=== PATIENT | male | born 1980 | race Hispanic/Latino ===

== ENCOUNTER 2016-12-28 22:27 | Inpatient (IN) ==
[2016-12-28 23:03] LABS: MANUAL DIFF NEEDED? NO
[2016-12-28 23:15] LABS: INR 1.04; PTT 30.8 Seconds (22.0-36.0)
[2016-12-28 23:17] LABS: AGAP 14; ALBUMIN 3.8 g/dL (3.5-5.0); ALKALINE PHOSPHATASE 94 U/L (32-122); BUN 12 mg/dL (8-22); CALCIUM 9.1 mg/dL (8.8-10.2); CHLORIDE 93 mmol/L (98-107); COSMO 271; GOT 26 U/L (10-34); GPT 35 U/L (10-44); POTASSIUM 3.4 mmol/L (3.5-5.1); SODIUM 135 mmol/L (136-145); TCO2 28 mmol/L (25-35); TOTAL BILIRUBIN 0.49 mg/dL (0.20-1.00); TOTAL PROTEIN 7.7 g/dL (6.3-8.3)
[2016-12-28 23:32] LABS: BASO% 0.1 % (0.0-0.8); EOS# 0.04 X1000 (0.0-0.7); EOS% 0.4 % (0.0-10.0); HEMOGLOBIN 11.5 g/dL (14.0-18.0); LYMPH# 1.82 X1000 (1.2-3.4); LYMPH% 17.8 % (20.5-51.1); MCH 29.3 PG (27-31); MCHC 33.8 g/dL (33-37); MCV 86.7 FL (81-99); MONO# 1.27 X1000 (0.11-0.59); MONO% 12.5 % (1.7-9.3); MPV 10.2 FL (7.4-10.4); NEUT% 69.2 % (42.2-75.2); PLT 328 X1000 (130-400); RBC 3.92 XMIL (4.7-6.1)
[2016-12-28] MEDS ORDERED: ROCEPHIN 1 GM/NS 1 GM/50 ML IVPB IV ONE (23:41)
[2016-12-28] MEDS ORDERED: ZITHROMAX 500 MG/NS 500 MG/250 ML IVPB IV ONE (23:42)
--- NOTE | 2016-12-28 23:56 | PROVIDER DOCUMENTATION ---
This chart was entered by Bo Yo Scribe, acting as scribe for Adryan Arnett MD. HPI-EENT General - General Stated Complaint: BLEEDING IN STOMA Time Seen by Provider: 12/28/16 22:27 Source: patient, family Allergies/Adverse Reactions: Patient Allergies Allergy/AdvReac Type Severity Reaction Status Date / Time No Known Allergies Allergy Verified 11/15/16 18:45 Home Medications: Home Medication List Medication Instructions Recorded Confirmed Last Taken Type NK [No Home Medications] 11/15/16 11/15/16 Unknown History - History of Present Illness-EENT General Nature of Presenting Problem: Pt is a 36 yohm with hx of throat cancer who presents to ER via EMS with CC of bleeding from tracheostomy tube. Pt sees Dr. Werner (ENT) in [place]. Pt reports mild pain, subjective fever, and blood coming from tracheostomy tube. EENT Location: reports: throat (tracheostomy tube) Quality of Pain: reports: other (unspecified) Severity: reports: mild Onset/Duration: reports: unsure, just prior to arrival Timing: reports: still present Associated Symptoms: reports: cough (bleeding from stoma is inducing cough), fever, voice change (unable to speak due to tracheostomy tube). denies: change in hearing, drooling, ear drainage, facial pain/swelling, malaise, nasal congestion/drainage, poor fluid intake, poor solids intake, sinus infection, sore throat, tooth pain Locality of Occurance: Home Similar Symptoms Previously?: Yes Recently seen or treated by another doctor?: Yes Review of Systems - Adult - REVIEW OF SYSTEMS - ADULT Constitutional: reports: fever. denies: chills, fatique, night sweats, weight gain, weight loss Eyes: reports: no symptoms reported Ears, Nose, Mouth & Throat: reports: no symptoms reported Cardiovascular: reports: no symptoms reported Respiratory: reports: cough (stoma bleeding induced cough). denies: dyspnea on exertion, excessive sputum production, pleurisy, shortness of breath, wheezing Gastrointestinal: reports: no symptoms reported Genitourinary: reports: no symptoms reported Musculoskeletal: reports: no symptoms reported Integumentary: reports: no symptoms reported Neurological: reports: no symptoms reported Psychiatric: reports: no symptoms reported Endocrine: reports: no symptoms reported Hematologic/Lymphatic: reports: no symptoms reported Allergic/Immunologic: reports: no symptoms reported All Other Systems: Reviewed and Negative Past History - Adult - PAST MEDICAL HISTORY-ADULT Review of Records: reports: Nursing Assessment Review, Medications Reviewed - PRIOR SURGERIES/PROCEDURES Surgical/Procedure History: reports: other (Tracheostomy tube; Feeding tube) - IMMUNIZATION STATUS Childhood Immunizations: See Nurse Assessment Flu Vaccine: See Nurse Assessment - FAMILY HISTORY Family History: reviewed, not pertinent Physical Exam- EENT - Physical Exam EENT Initial Vital Signs Reviewed: Yes General Appearance: appears well, alert, mild distress Throat Exam: other (bleeding from trach stoma) Respiratory: chest non-tender, lungs clear, no pleuratic chest pain, no respiratory distress, no accessory muscle use, rhonchi (coarse in bases), wheezing. negative: normal breath sounds Cardiovascular: normal peripheral pulses, regular rate, rhythm. negative: bradycardia, tachycardia, irregularly irregular Psych/Mental Status: normal mood/affect, normal thought content, normal thought process, oriented x 3 Progress - PLAN OF CARE/RESULTS Progress/Plan/Lab Results: Vital Signs - 8 hr 12/28/16 22:31 Temperature 100.5 F H Pulse Rate 79 Respiratory Rate 18 Blood Pressure 117/65 O2 Sat by Pulse Oximetry 100 Laboratory Results - last 24 hr 12/28/16 12/28/16 12/28/16 22:30 22:30 22:30 WBC 10.20 RBC 3.92 L Hgb 11.5 L Hct 34.0 L MCV 86.7 MCH 29.3 MCHC 33.8 RDW Std Deviation 11.9 Plt Count 328 MPV 10.2 Neut % (Auto) 69.2 Lymph % (Auto) 17.8 L Kershaw % (Auto) 12.5 H Eos % (Auto) 0.4 Baso % (Auto) 0.1 Neut # (Auto) 7.06 H Lymph # (Auto) 1.82 Kershaw # (Auto) 1.27 H Eos # (Auto) 0.04 Baso # (Auto) 0.01 PT INR PTT (Actin FS) Sodium 135 L Potassium 3.4 L Chloride 93 L Carbon Dioxide 28 Anion Gap 14 BUN 12 Creatinine 0.6 L Estimated GFR/1.73 m2 > 60 BUN/Creatinine Ratio 20 Glucose 119 H Calculated Osmolality 271 Calcium 9.1 Total Bilirubin 0.49 AST 26 ALT 35 Alkaline Phosphatase 94 Total Protein 7.7 Albumin 3.8 Globulin 3.9 Albumin/Globulin Ratio 1.0 Plasma Lactate 1.5 12/28/16 22:30 WBC RBC Hgb Hct MCV MCH MCHC RDW Std Deviation Plt Count MPV Neut % (Auto) Lymph % (Auto) Kershaw % (Auto) Eos % (Auto) Baso % (Auto) Neut # (Auto) Lymph # (Auto) Kershaw # (Auto) Eos # (Auto) Baso # (Auto) PT 11.0 INR 1.04 PTT (Actin FS) 30.8 Sodium Potassium Chloride Carbon Dioxide Anion Gap BUN Creatinine Estimated GFR/1.73 m2 BUN/Creatinine Ratio Glucose Calculated Osmolality Calcium Total Bilirubin AST ALT Alkaline Phosphatase Total Protein Albumin Globulin Albumin/Globulin Ratio Plasma Lactate Orders Category Date Time Status CHEST-PORTABLE [RAD] Stat Exams 12/28/16 22:55 Taken BLOOD CULTURE [BLDCUL] Stat Lab 12/28/16 22:30 Results CBC WITH ELECTRONIC DIFF [HEME] Stat Lab 12/28/16 22:30 Completed COMPREHENSIVE METABOLIC PANEL [CHEM] Stat Lab 12/28/16 22:30 Completed LACTATE, PLASMA [CHEM] Stat Lab 12/28/16 22:30 Completed PROTIME WITH INR [COAG] Stat Lab 12/28/16 22:30 Completed PTT [COAG] Stat Lab 12/28/16 22:30 Completed Azithromycin 500 mg/Ns [Zithromax 500 mg/Ns] Med 12/28/16 23:42 Active 500 mg in 250 ml IV NOW CefTRIAXONE 1 GM/NS [Rocephin 1 gm/Ns] Med 12/28/16 23:41 Active 1 gm in 50 ml IV NOW EKG [EKG] Stat Ther 12/28/16 22:58 Ordered Result Diagrams: 12/28/16 22:30 12/28/16 22:30 - REASSESSMENT Reassessment #1 Time Reassessed: 23:54 (contacted [facility] where Dr Paris is based and no 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 Alcala (ENT Specialist) Time Discussed: 22:34 (Consult for what type of coverage Dr. Werner has; Call privileges only) #2 Consult: Dr. Collier (Hospitalist) Time Discussed: 23:45 Consult Disposition: Admit Departure - Departure Date of Disposition Decision: 12/28/16 Time of Disposition Decision: 23:53 DIAGNOSIS: Throat cancer, Febrile illness Disposition: ADMITTED INPATIENT 09 Certified Medical Emergency: Emergent Condition: Good Referrals and Follow-Ups: None,PCP [Primary Care Provider] - - Critical Care Note This patient required my direct & personal management of CC.: No This chart was documented by the indicated scribe, (Bo Yo, Terrell) and accurately reflects the services I performed and decisions made by me, Adryan Conroy MD, as attested by the provider's signature.
[2016-12-29] MEDS ORDERED: NS 1,000 ML IV SCH (01:34)
[2016-12-29] MEDS ORDERED: SODIUM CHLORIDE 0.9% INJ SCH ×2 (01:34→01:45)
[2016-12-29] MEDS ORDERED: ZOFRAN IV PRN (01:34)
[2016-12-29] MEDS: ZOSYN 3.375 GM/NS 3.375 GM/50 ML IVPB IV SCH ×3 (02:56→16:45)
[2016-12-29] MEDS: NEXIUM IV SCH ×2 (02:56→15:25)
[2016-12-29] MEDS: HYDROCODONE/APAP 7.5-325/15 ML PEG PRN ×3 (02:57→15:24)
--- NOTE | 2016-12-29 03:06 | HISTORY AND PHYSICAL ---
PRIMARY ENT PHYSICIAN: Dr. Paris. CHIEF COMPLAINT: Bleeding from the tracheostomy tube. HISTORY OF PRESENT ILLNESS: This is a 36-year-old, male with a past medical history of a recent diagnosis of throat cancer 1 month ago, who was brought to the emergency department because of tracheostomy bleeding. According to the family, they reported that at approximately 8 p.m. yesterday, he started having a mild cough and also they noticed perfuse bleeding coming from the tracheostomy tube. They called 911. This patient was brought to the emergency department. Here, the bleeding was controlled. Upon my examination, there is no more active bleeding anymore. Labs have been checked and hemoglobin was 7.5. We talked with the family and apparently he had an appointment this week to have a PET scan and he was supposed to be seen by his oncologist, Dr. Fredrick Seymour this week. Also, he was supposed to have a PET scan last week but it was canceled because this patient had eaten. The patient is going to be admitted to the hospital for further evaluation and treatment. PAST MEDICAL HISTORY: Recently diagnosed throat cancer. PAST SURGICAL HISTORY: Tracheostomy tube placed 2-3 weeks ago. SOCIAL HISTORY: As per family, he denies drinking alcohol, smoking tobacco, or using illicit drugs. ALLERGIES: No known drug allergies. REVIEW OF SYSTEMS: Not possible to obtain because the patient cannot talk. PHYSICAL EXAMINATION: VITAL SIGNS: Temperature 100.5, heart rate 79, respiratory rate 18, blood pressure 120/70, O2 saturation 100% on room air. GENERAL: Chronically ill-looking, 36-year-old, male, lying in bed, in no acute distress. HEENT: Head is atraumatic and anicteric. Anicteric sclerae. Pale conjunctivae. Mucous membranes moist. NECK: Supple with tracheostomy tube in place with no active bleeding at this time but definitely some residual bleeding in the stoma. No gross lymphadenopathy noted. No carotid bruits. CARDIOVASCULAR: S1, S2 heard. No murmurs, gallops, or rubs. Regular rate and rhythm. RESPIRATORY: Clear bilaterally to auscultation. No work of breathing or using accessory muscles. ABDOMEN: Soft, nontender to palpation. Bowel sounds present. No organomegaly. EXTREMITIES: No clubbing, cyanosis, or edema. Peripheral pulses present in both legs. NEUROLOGICAL: Patient is awake. Moves 4 extremities. Cannot talk. LABORATORY DATA: White cell count 10.2, hemoglobin 11.5, hematocrit 34. BMP and liver function tests completely normal. ASSESSMENT AND PLAN: 1. Throat cancer, status post tracheostomy tube. Patient has been seen at [facility] by Dr. Paris. The family reported that they were not informed about what kind of cancer that he has. In any case, the plan for next week is to have an appointment with his oncologist, Dr. Seymour, and also radiotherapy, Dr. Light. Apparently, he has a PET scan pending for this week. Also, Dr. Light was supposed to see this patient this week. In any case, we are going to admit this patient to the hospital. Because, according to the family, this patient allowed to have some food, that he was doing 2 weeks ago until 1 week ago, and for possible aspiration risks, we are going to do a CT of the chest. We are going to check labs tomorrow to see if there was any variation in hemoglobin. 2. We are going to provide intravenous fluid resuscitation and pain medications as well. 3. Further recommendation to follow according to the opinion of the 3 subspecialists involved in his care. cc: Timothy Good MD
--- NOTE | 2016-12-29 05:40 | Diag Imaging Result Doc PS360 ---
EXAM: CHEST-PORTABLE HISTORY: sob TECHNIQUE: Portable COMPARISON: None. FINDINGS: There is a tracheostomy tube. The lungs are well expanded. Heart is not enlarged. There are no infiltrates. No pleural effusions identified. IMPRESSION: Tracheostomy tube, but otherwise negative chest. Electronically signed by Naseem oLya 12/29/2016 5:38 AM
--- NOTE | 2016-12-29 07:24 | Diag Imaging Result Doc PS360 ---
CT THORAX W/O CONTRAST - 12/29/2016 INDICATION: Hemoptysis, r/o PNA TECHNIQUE: A CT dose reduction protocol was used. COMPARISON: 12/15/2016 FINDINGS: There is worsening in right paratracheal adenopathy below the level of the thyroid gland. The largest node here now measures 3.1 x 2 cm. This is adjacent to the entry site of the tracheostomy tube. Otherwise, stable tracheostomy tube in good position. Heart and great vessels remain normal. Upper abdominal images are normal. There is some hazy dependent atelectasis. Lungs are otherwise clear. IMPRESSION: 1. Increasing right paratracheal lymphadenopathy. 2. Negative for pneumonia. Electronically signed by Kodi Humphries 12/29/2016 7:22 AM
[2016-12-29 07:38] LABS: AGAP 11; BUN 10 mg/dL (8-22); CALCIUM 8.9 mg/dL (8.8-10.2); CHLORIDE 98 mmol/L (98-107); COSMO 277; SODIUM 139 mmol/L (136-145); TCO2 30 mmol/L (25-35)
[2016-12-29 07:53] LABS: BASO% 0.1 % (0.0-0.8); EOS# 0.04 X1000 (0.0-0.7); EOS% 0.4 % (0.0-10.0); HEMATOCRIT 31.5 % (42.0-52.0); HEMOGLOBIN 10.3 g/dL (14.0-18.0); LYMPH# 1.76 X1000 (1.2-3.4); LYMPH% 19.1 % (20.5-51.1); MANUAL DIFF NEEDED? YES; MCH 28.6 PG (27-31); MCHC 32.7 g/dL (33-37); MCV 87.5 FL (81-99); MONO# 1.29 X1000 (0.11-0.59); MPV 9.9 FL (7.4-10.4); NEUT% 66.4 % (42.2-75.2); PLT 321 X1000 (130-400)
[2016-12-29 09:07] LABS: LYMPHS 12 % (21-51); MONO 16 % (1-9)
--- NOTE | 2016-12-29 14:05 | DISCHARGE SUMMARY ---
ADMISSION DATE: 12/29/2016 DISCHARGE DATE: 12/29/2016 PRIMARY CARE PHYSICIAN: Dr. Paris. REASON FOR ADMISSION: Bleeding from the tracheostomy tube. HISTORY AND HOSPITAL COURSE: This is a 36-year-old male with a past medical history of recent diagnosis of throat cancer one month ago, brought into the emergency department because of tracheostomy bleeding. According to family they reported that at approximately 8 p.m. he started having mild cough and they noticed profuse bleeding coming from the tracheostomy tube. The patient called 911 and they brought him to the emergency room. The bleeding was controlled. On examination there was no more bleeding. Labs had been checked. Hemoglobin was 7.5. Talked to family and he apparently had an appointment to have a PET scan and was supposed to be seen by his oncologist, Dr. Fredrick Seymour, this week. Was supposed to have a PET scan which was canceled because the patient had not eaten. Recently diagnosed with throat cancer. Tracheostomy tube about 3 weeks ago. Patient's bleeding seemed to have slowed down. He is receiving PEG tube feedings. His ears, nose, and throat doctor we would like him to be in [place] as he will probably need some surgical revision for his tracheostomy. He had increasing right peritracheal lymphadenopathy. Chest x-ray was negative for pneumonia. Plan to transfer him to [place]. DISCHARGE MEDICATIONS: Continue his present medications Nexium 40 mg IV q.12 hours, Zofran 4 mg IV q.4 hours p.r.n. He is on empiric Zosyn 3.375 mg IV q.6 hours right now. cc: Piter Roldan MD
[2016-12-29 14:58] VITALS: BP 103/65
--- NOTE | 2017-01-01 09:29 | CONSULTATION ---
DATE OF CONSULTATION: 12/29/2016 ADMITTING PHYSICIAN: Dr. Collier. REQUESTING PHYSICIAN: Dr. Collier. We appreciate this consult. CHIEF COMPLAINT: Throat cancer. HISTORY OF PRESENT ILLNESS: Mr. Tariq is a 36-year-old male with a past medical history of throat cancer diagnosed 1 month prior to admission. He was brought to [facility] Emergency Department because of his recent tracheostomy bleeding. The patient reported that he began having a mild cough, and after that time, noticed significant bleeding from his tracheostomy tube. The patient was brought to [facility] Emergency Department via EMS, where the bleeding was controlled. The patient was scheduled for a PET scan with Dr. Fredrick Seymour, scheduled for this week. PAST MEDICAL HISTORY: Recently diagnosed throat cancer. PAST SURGICAL HISTORY: Tracheostomy tube placed 2 to 3 weeks ago. SOCIAL HISTORY: The patient does not use tobacco, alcohol, or illicit drugs. FAMILY HISTORY: Negative for any hematologic or oncologic problem. MEDICATIONS ON ADMISSION: None. ALLERGIES: None. REVIEW OF SYSTEMS: A 14-point review of systems was attempted and is unable to be obtained as the patient is nonverbal at this time secondary to trach. The patient's family, however, does report that he has had significant pain at the trach site, as well as profuse bleeding, which has now stopped. PHYSICAL EXAMINATION: General: Mr. Tariq is a 36-year-old male, lying supine in bed in no immediate distress. Vital Signs: Temperature 100.1, blood pressure 115/69, heart rate 83, respirations 18, O2 saturation is 100% on trach collar. HEENT: Normocephalic, atraumatic. Mucous membranes are slightly pale and moist. Sclerae anicteric. Extraocular movements intact. Neck: Supple. Lungs: Clear to auscultation bilaterally. Chest expansion is equal bilaterally. CV: S1, S2 is heard without murmur, rub, or gallop. Abdomen: Soft, nondistended, nontender. Bowel sounds positive in all quadrants. No rebound or guarding noted. Extremities: Without clubbing, cyanosis, or edema. Dermatologic: No rashes, bruises, or lesions. Neurologic: The patient is awake, alert, and oriented x3. He has no focal deficit at this time. LABORATORY DATA: Hemoglobin 10.3, hematocrit 31.5, white blood cell count 9.21, platelets 321,000. Sodium 139, potassium 4.0, chloride 98, CO2 is 30, BUN 10, creatinine 0.6, glucose 114, calcium 8.9. IMAGING STUDIES: CT of the chest revealed increasing right peritracheal lymphadenopathy, and negative for pneumonia. ASSESSMENT AND PLAN: 1. Throat cancer, status post tracheostomy. The patient is scheduled for a PET scan this week, with initial visit scheduled for Dr. Seymour to discuss treatment plan. 2. Pain secondary to #1. Would continue current pain regimen as scheduled. 3. Dehydration. The patient is currently on intravenous fluid resuscitation. Would continue intravenous fluids as ordered. We will follow along with you, and make further recommendations pending outcomes. The above reflects the history, exam, assessment, and plan of Dr. Seymour. Dictated by KRYSTINA Rizvi for Fredrick Seymour MD cc: KRYSTINA Rizvi MD
== END 2016-12-29 17:57 | disposition short-term general hospital (02) ==
LOC: ED 22:27 → 3N 12-29 01:01 → SUATTDRO 12-29 01:01
PROVIDERS: ATTEND Emergency Medicine